=== PATIENT | female | born 1950 | race Caucasian/White ===

== ENCOUNTER → 2017-07-06 | Outpatient (CLI) | payer MEDICARE ==
--- NOTE | 2017-07-06 09:47 | REPMRS ---
Patient History The patient states she had a clinical breast exam in Patient is postmenopausal and has history of other cancer at age 58. No known family history of cancer. Digital Woman Screen Mammo: July 06, 2017 - Exam #: [id number] Bilateral CC and MLO view(s) were taken. Technologist: Mary Bustillo, Technologist Prior study comparison: April 04, 2016, digital woman screen mammo performed at [facility] to [facility]. April 03, 2015, digital woman screen mammo performed at [facility] to [facility]. FINDINGS: There are scattered fibroglandular densities. There has been no change in the appearance of the mammogram from the prior studies. There is a mild amount of residual fibroglandular tissue which is fairly symmetric. There is no interval development of dominant mass, architectural distortion, or clustered microcalcification suggestive of malignancy. ASSESSMENT: BI-RADS/ACR category 1 mammogram. Negative. Recommendation Routine screening mammogram in 1 year (for women over age 40). This mammogram was interpreted with the aid of an FDA-approved computer-aided dectection system. Electronically Signed By: Tashi Motley MD 07/06/17 [id number]
--- NOTE | 2017-07-07 09:18 | DEXA ---
AP SPINE L1 - L4 0.799 -3.2 -1.6 LT FEMUR TOTAL 0.756 -2.0 -0.8 RT FEMUR TOTAL 0.762 -2.0 -0.7 TOTAL BODY TOTAL OTHER COMMENTS: There is low bone density of the hips. There is osteoporosis of the spine. The decreased density of the spine does not represent a significant change. The decreased density of the left hip does represent a significant change. The decreased density of the right hip does represent a significant change. The density of the spine has decreased 4.7% since the initial exam on 06/2009. The spine density has decreased 0.5% since the most recent exam on 03/2015. The density of the left hip has decreased 0.3% since the initial exam on 2008. The density of the left hip has decreased 4.2% since the most recent exam on 2014. The density of the right hip has decreased 4.4% since the initial exam on 2008. The density of the right hip has decreased 3.7% since the most recent exam on 2014. FOLLOW-UP: Recommendation for the next bone density exam: 2 years. MUSTAPHA
== END ==
LOC: M WHC 08:04
PROVIDERS: ATTEND Obstetrics & Gynecology
DX: Z12.31 Encounter for screening mammogram for malignant neoplasm of breast (principal); Z13.820 Encounter for screening for osteoporosis
CPT/HCPCS: 77080; G0202

== ENCOUNTER 2018-02-13 07:02 | Day surgery (SDC) | payer MEDICARE ==
[2018-02-13] MEDS: NS 1,000 ML IV (07:15)
[2018-02-13] MEDS ORDERED: PROPOFOL 200 MG/20 ML VIAL As Ordered ×2 (07:26→08:49)
== END 2018-02-13 09:34 | disposition home or self-care (01) ==
LOC: M OPP 07:02
DX: Z12.11 Encounter for screening for malignant neoplasm of colon (principal); Z86.010 Personal history of colon polyps; D12.0 Benign neoplasm of cecum; D12.2 Benign neoplasm of ascending colon; K57.30 Diverticulosis of large intestine without perforation or abscess without bleeding; K64.8 Other hemorrhoids; F32.9 Major depressive disorder, single episode, unspecified; F41.9 Anxiety disorder, unspecified; M19.90 Unspecified osteoarthritis, unspecified site; M06.9 Rheumatoid arthritis, unspecified; M81.0 Age-related osteoporosis without current pathological fracture; E55.9 Vitamin D deficiency, unspecified; Z79.82 Long term (current) use of aspirin; Z79.899 Other long term (current) drug therapy; Z80.6 Family history of leukemia
CPT/HCPCS: 45385

== ENCOUNTER → 2020-05-13 | Outpatient (CLI) | payer MEDICARE ==
[~2020-05-13] MED LIST: ASPI-546 PO; CALC-136 PO; CALCTAB28 PO; METH2.5T48 PO; SERT50TA29 PO; VITA-182 PO; VITATAB11 PO
--- NOTE | 2020-05-13 11:02 | REPMRS ---
Patient History No known family history of cancer. 3D TOMOSYNTHESIS WAS PERFORMED. [facility] risk for [facility] cancer [facility] 7.5%. [facility]. Digital Woman Screen Mammo: May 13, 2020 - Exam #: [id number] Bilateral CC and MLO view(s) were taken. Technologist: Colleen Wolfe, Technologist Prior study comparison: July 06, 2017, digital woman screen mammo performed at [facility]. April 04, 2016, digital woman screen mammo performed at [facility]. FINDINGS: The breast tissue is heterogeneously dense. This may lower the sensitivity of mammography. There has been no change in the appearance of the mammogram from the prior studies. There is a moderate amount of residual fibroglandular tissue which is fairly symmetric. There is no interval development of dominant mass, areas of architectural distortion, or clustered microcalcification typical of malignancy. Assessment: BI-RADS/ACR category 1 mammogram. Negative Mammogram. Recommendation Routine screening mammogram in 1 year (for women over age 40). This mammogram was interpreted with the aid of an FDA-approved computer-aided dectection system. Electronically Signed By: Tashi Motley MD 05/13/20 [id number]
--- NOTE | 2020-05-18 15:24 | DEXA ---
AP SPINE L1 - L4 0.733 -3.7 -2.1 LT FEMUR TOTAL 0.743 -2.1 -0.7 LT NECK 0.716 -2.3 -0.7 RT FEMUR TOTAL 0.743 -2.1 -0.7 RT NECK 0.728 -2.2 -0.6 TOTAL BODY TOTAL OTHER COMMENTS: There is low bone density of the hips. There is osteoporosis of the spine. The density of the spine has decreased 12.5% since the initial exam on 07/02/2009. The decreased 8.3% since the most recent exam on 07/06/2017. The density of the left hip has decreased 2.0% since the initial exam on 07/02/2009. The density of the left hip has decreased 1.7% since the most recent exam on 07/06/2017. The density of the right hip has decreased 6.8% since the initial exam on 07/02/2009. The density of the right hip has decreased 2.5% since the most recent exam on 07/06/2017. FOLLOW-UP: Recommendation for the next bone density exam: 2 years. MUSTAPHA
== END ==
LOC: M WHC 09:14
PROVIDERS: ATTEND Advanced Practice Midwife
DX: Z12.31 Encounter for screening mammogram for malignant neoplasm of breast (principal); Z13.820 Encounter for screening for osteoporosis; M81.0 Age-related osteoporosis without current pathological fracture; M85.851 Other specified disorders of bone density and structure, right thigh; M85.852 Other specified disorders of bone density and structure, left thigh

== ENCOUNTER 2023-03-31 08:12 | Day surgery (SDC) | payer MEDICARE ==
[~2023-03-31] VITALS: Ht 162.6 cm; Wt 72.6 kg
[~2023-03-31 08:12] MED LIST changes: +D 50CAP3 PO; +FOLI1TAB11 PO; +MAGN250T7 PO; +NS 1,000 ML IV ONE; +RA T500C2 PO; +VITA500C24 PO
[2023-03-31] MEDS ORDERED: propofoL 200 MG/20 ML VIAL As Ordered ONE (10:45)
[2023-03-31 11:00] VITALS: TEMP 97.7
[2023-03-31 11:16] VITALS: BP 142/63; O2SAT 96
== END 2023-03-31 11:16 | disposition home or self-care (01) ==
LOC: M OPP 08:12
PROVIDERS: ATTEND Internal Medicine Gastroenterology
DX: Z86.010 Personal history of colon polyps (principal); D12.2 Benign neoplasm of ascending colon; D12.3 Benign neoplasm of transverse colon; K63.5 Polyp of colon; K57.30 Diverticulosis of large intestine without perforation or abscess without bleeding; K64.8 Other hemorrhoids; Z79.899 Other long term (current) drug therapy

== ENCOUNTER → 2023-04-20 | Outpatient (CLI) | payer MEDICARE ==
[~2023-04-20] MED LIST changes: -NS 1,000 ML IV ONE
== END ==
LOC: M WHC 09:54
PROVIDERS: ATTEND Obstetrics & Gynecology
DX: Z12.31 Encounter for screening mammogram for malignant neoplasm of breast (principal)